=== PATIENT | female | born 1995 | race Caucasian/White ===

== ENCOUNTER 2020-04-04 07:15 | Outpatient (CLI) | payer OTHER ==
--- NOTE | 2020-04-04 10:26 | MRI Report ---
PROCEDURE: Abdomen W/WO INDICATIONS: LIVER DISEASE CONTRAST: IV CONTRAST: Gadavist ml: 6.5 TECHNIQUE: Coronal ultra fast SE, axial 2D spoiled GE in- and [id number]; axial breath-hold T2 fast SE. Dynam ic axial ultra fast GE during the administration of contrast; post-contrast coronal ultra fast GE or 2D spoiled GE with fat saturation from the hepatic dome to the iliac crests. Optional diffusion weig hted imaging and ADC may be performed. COMPARISON: Ultrasound from [facility] dated 05/27/2019 FINDINGS: Image quality: Suboptimal secondary to patient motion. Lung bases: No basal pleural effusions. Heart size is normal. Solid organs: Liver and spleen are normal in size and enhancement. The 4.6 mm right lobe liver lesi on seen on recent ultrasound is not identified on the study. Gallbladder is normal without stones. B iliary system is non dilated. Pancreas is normal in morphology. No adrenal nodules. Both kidneys d emonstrate normal size and enhancement, without hydronephrosis. Nodes and vessels: No retroperitoneal or mesenteric adenopathy by size criteria. Aorta and inferior vena cava are normal in size. Bowel and peritoneum: Unenhanced bowel loops are normal in caliber. No free fluid. Bones and soft tissues: No ventral hernias. Bone marrow is normal in overall signal. IMPRESSION: 1. Benign-appearing liver lesion seen on prior ultrasound is not identified, probably below the thres hold of resolution due to small size, potentially obscured by motion artifact or possibly resolved. 2. Normal MR of the abdomen. Reviewed by: Doreen Marino MD on 04/04/2020 10:25 AM PDT Approved by: Doreen Marino MD on 04/04/2020 10:25 AM PDT Station ID: [id number]
== END 2020-04-04 07:16 | disposition home or self-care (01) ==
LOC: DI 07:15
DX: K76.9 Liver disease, unspecified (principal)
CPT/HCPCS: 74183; A9585

== ENCOUNTER 2020-12-02 01:57 | Outpatient (CLI) | payer OTHER | END 2020-12-02 01:58 | disposition short-term general hospital (02) | LOC: EMS 01:57 | DX: R11.2 Nausea with vomiting, unspecified (principal); R10.9 Unspecified abdominal pain | CPT/HCPCS: A0425; A0427 ==